=== PATIENT | male | born 1990 | race Two or more races ===

== ENCOUNTER 2024-09-22 08:44 | Emergency (ER) | payer MEDICAID ==
[~2024-09-22] VITALS: Ht 175.3 cm; Wt 79.3 kg
[2024-09-22 08:46] VITALS: O2SAT 100
[2024-09-22 08:56] VITALS: BP 154/98; PULSE 99; RESP 13; TEMP 98.2; O2SAT 100
[2024-09-22] MEDS ORDERED: SULF1TAB48 MT (09:21)
[2024-09-22] MEDS ORDERED: CEPH500C2 MT (09:21)
[2024-09-22] MEDS ORDERED: MUPI15CR11 TP (09:25)
== END 2024-09-22 09:31 | disposition home or self-care (01) ==
LOC: ER 08:44
DX: L03.115 Cellulitis of right lower limb (principal); Z88.0 Allergy status to penicillin
CPT/HCPCS: 99283